=== PATIENT | female | born 1950 | race Caucasian/White ===

== ENCOUNTER 2018-02-22 06:55 | Outpatient (CLI) | payer MEDICARE ==
[~2018-02-22] VITALS: Ht 157.5 cm; Wt 35.9 kg
[2018-02-22] VITALS (18 sets, daily range): BP systolic 101–128; BP diastolic 57–69; PULSE 67–102
[~2018-02-22 06:55] MED LIST: CALCIUM CITRAT200 MG; CARTIA XT180 MG PO; CITRACAL + D CA1 TAB PO; FLAGYL500 MG PO; FLEXERIL 1010 MG/TAB PO; FOSAMAX 70MG TA70 MG PO; LEVAQUIN 5500 MG/TA1 PO; MULTI VITAMINS1 TAB PO; NORCO 325 MG-51 TAB PO; NORCO 325 MG-7.1 TAB PO; OSTEO-BI-FLEX 21 TAB PO; PRINIVIL10 MG PO; TURMERIC500 MG PO; VITAMIN B122500 MCG SL; VITAMIN D 400400 IU PO; VITAMIN D31000 I1 PO; VITAMINS & MIN480 M1 PO; ZESTRIL 20MG TA20 MG PO
== END 2018-02-22 12:00 | disposition home or self-care (01) ==
LOC: COL.RAD 06:55
DX: C34.92 Malignant neoplasm of unspecified part of left bronchus or lung (principal)
CPT/HCPCS: 32107